=== PATIENT | female | born 1985 | race African-American/Black ===

== ENCOUNTER 2020-08-26 14:16 | Emergency (ER) | payer MEDICAID, OTHER ==
[~2020-08-26] VITALS: Ht 185.4 cm; Wt 122.5 kg
[2020-08-26 15:41] VITALS: BP 123/70
[2020-08-26] MEDS ORDERED: ACETAMINOPHEN/CODEINE#3 (300/30mg) TAB PO ONE (16:30)
== END 2020-08-26 18:24 | disposition home or self-care (01) ==
LOC: ER 14:16
DX: S69.91XA Unspecified injury of right wrist, hand and finger(s), initial encounter (principal); S60.141A Contusion of right ring finger with damage to nail, initial encounter; Z88.0 Allergy status to penicillin; X58.XXXA Exposure to other specified factors, initial encounter; Y93.89 Activity, other specified; Y92.89 Other specified places as the place of occurrence of the external cause; Y99.8 Other external cause status
CPT/HCPCS: 29125; 73130

== ENCOUNTER 2020-09-07 11:34 | Emergency (ER) | payer MEDICAID ==
[~2020-09-07] VITALS: Ht 185.4 cm; Wt 122.5 kg
[2020-09-07 15:16] VITALS: BP 109/68
== END 2020-09-07 15:25 | disposition home or self-care (01) ==
LOC: ER 11:34
DX: S62.632A Displaced fracture of distal phalanx of right middle finger, initial encounter for closed fracture (principal); B37.2 Candidiasis of skin and nail; L03.011 Cellulitis of right finger; Z88.0 Allergy status to penicillin; X58.XXXA Exposure to other specified factors, initial encounter; Y93.89 Activity, other specified; Y92.89 Other specified places as the place of occurrence of the external cause; Y99.8 Other external cause status
CPT/HCPCS: 29125; 73130